=== PATIENT | female | born 1980 | race Two or more races ===

== ENCOUNTER 2017-11-29 15:32 | Inpatient (IN) | payer MEDICAID ==
[2017-11-29] MEDS: LACTATED RINGER'S 1,000 ML IV ×2 (16:50→17:54)
[2017-11-29 16:57] LABS: ADD MAN DIFF? NO
[2017-11-29 16:59] LABS: WHITE BLOOD COUNT 10.1 10^3/ul (4.8-10.8)
[2017-11-29 16:59] LABS: BASOPHIL # 0.1 10^3/ul (0.0-0.1); BASOPHILS % 0.5 % (0.0-2.0); EOSINOPHILS # 0.1 10^3/ul (0.0-0.5); EOSINOPHILS % 0.6 % (0.0-7.0); HEMATOCRIT 34.4 % (37.0-47.0); HEMOGLOBIN 12.1 g/dl (12.0-16.0); LYMPHOCYTES # 2.3 10^3/ul (0.8-2.9); LYMPHOCYTES % 22.9 % (15.0-51.0); MEAN CORPUSCULAR HEMOGLOBIN 34.4 pg (29.0-33.0); MEAN CORPUSCULAR HGB CONC 35.2 g/dl (32.0-37.0); MEAN CORPUSCULAR VOLUME 97.7 fl (82.0-101.0); MEAN PLATELET VOLUME 11.1 fl (7.4-10.4); MONOCYTE # 0.6 10^3/ul (0.3-0.9); NEUTROPHIL # 6.9 10^3/ul (1.6-7.5); NEUTROPHILS % 68.7 % (39.0-77.0); PLATELET COUNT 185 10^3/UL (140-415); RED BLOOD COUNT 3.52 10^6/ul (4.20-5.40); RED CELL DISTRIBUTION WIDTH 11.9 % (11.5-14.5)
[2017-11-29 17:06] LABS: ADD UMIC NO; UR ASCORBIC ACID NEGATIVE (NEGATIVE); UR BILIRUBIN (Dip) NEGATIVE (NEGATIVE); UR BLOOD (Dip) NEGATIVE (NEGATIVE); UR CLARITY CLEAR (CLEAR); UR COLOR YELLOW (YELLOW); UR GLUCOSE (Dip) NEGATIVE (NEGATIVE); UR KETONES (Dip) 1+ mg/dL (NEGATIVE); UR LEUKOCYTE ESTERASE (Dip) NEGATIVE Leu/ul (NEGATIVE); UR NITRITE (Dip) NEGATIVE (NEGATIVE); UR SPECIFIC GRAVITY (Dip) 1.011 (1.003-1.030); UR TOTAL PROTEIN (Dip) NEGATIVE (NEGATIVE); UR UROBILINOGEN (Dip) 2+ mg/dL (NEGATIVE)
[2017-11-29] MEDS: TERBUTALINE 1 MG/ML INJ SC (21:44)
[2017-11-29 22:23] LABS: INR 0.93; PARTIAL THROMBOPLASTIN TIME 26.9 Sec (25.0-35.0); PROTIME 12.5 Sec (11.9-14.9)
[2017-11-30] MEDS ORDERED: ACETAMINOPHEN 650 MG SUPP PR (00:30)
[2017-11-30] MEDS: LACTATED RINGER'S 1,000 ML IV ×4 (00:40→21:00)
[2017-11-30] MEDS: MAGNESIUM SULFATE 20 GM/500 ML 500 ML IV ×4 (00:55→22:06)
[2017-11-30] MEDS: BETAMET NA PHOS/AC(6 MG/ML) 5ML INJ IM (00:59)
[2017-11-30] MEDS: MAGNESIUM SULFATE 4 GM/100 ML 100 ML IV (01:09)
[2017-11-30 07:04] LABS: ALANINE AMINOTRANSFERASE 25 IU/L (13-69); ALBUMIN 3.3 g/dl (3.3-4.9); ALKALINE PHOSPHATASE 182 IU/L (42-121); ANION GAP 14 (8-16); ASPARTATE AMINO TRANSFERASE 26 IU/L (15-46); BILIRUBIN,INDIRECT 0.5 mg/dl (0-1.1); BILIRUBIN,TOTAL 0.5 mg/dl (0.2-1.3); BLOOD UREA NITROGEN 5 mg/dl (7-20); CALCIUM 8.1 mg/dl (8.4-10.2); CARBON DIOXIDE 20 mmol/L (21-31); CHLORIDE 109 mmol/L (97-110); CREATININE 0.39 mg/dl (0.44-1.00); GLUCOSE 110 mg/dl (70-220); POTASSIUM 4.4 mmol/L (3.5-5.1); SODIUM 139 mmol/L (135-144); TOTAL PROTEIN 6.6 g/dl (6.1-8.1)
[2017-11-30 07:21] LABS: MAGNESIUM 4.7 mg/dl (1.7-2.5)
[2017-11-30] MEDS: PRENATAL VITAMIN PO (09:12)
[2017-11-30] MEDS: DOCUSATE SODIUM 100 MG CAP PO (09:13)
[2017-11-30] MEDS: FERROUS SULFATE (EC) 325 MG TAB PO (09:13)
[2017-12-01] MEDS: LACTATED RINGER'S 1,000 ML IV ×3 (00:53→15:30)
[2017-12-01] MEDS: BETAMET NA PHOS/AC(6 MG/ML) 5ML INJ IM (00:57)
[2017-12-01 01:27] LABS: MAGNESIUM 4.9 mg/dl (1.7-2.5)
[2017-12-01] MEDS: ACETAMINOPHEN 325 MG TAB PO (03:31)
[2017-12-01] MEDS: CALCIUM CARBONATE 500 MG CHEW TAB PO (08:05)
[2017-12-01] MEDS: FERROUS SULFATE (EC) 325 MG TAB PO (08:05)
[2017-12-01] MEDS: DOCUSATE SODIUM 100 MG CAP PO (08:05)
[2017-12-01] MEDS: PRENATAL VITAMIN PO (08:05)
== END 2017-12-01 17:30 | disposition home or self-care (01) | DRG 778 ==
LOC: OBT 15:32 → L-D 15:33 → PP1 11-30 20:07
PROVIDERS: Obstetrics & Gynecology
DX: O60.03 Preterm labor without delivery, third trimester (principal); Z3A.36 36 weeks gestation of pregnancy
CPT/HCPCS: 36415; 76815; 76818; 80053; 81003; 83735; 85025; 85610; 85730; 96360; 96361; 96372

== ENCOUNTER 2017-12-07 08:41 | Inpatient (IN) | payer MEDICAID ==
[2017-12-07] MEDS ORDERED: CARBOPROST 250 MCG INJ IM ×2 (11:00→23:30)
[2017-12-07] MEDS ORDERED: MISOPROSTOL 200 MCG TAB PR ×2 (11:00→23:30)
[2017-12-07] MEDS ORDERED: METHYLERGONOVINE 0.2 MG INJ IM ×2 (11:00→23:30)
[2017-12-07] MEDS: LACTATED RINGER'S 1,000 ML IV ×3 (12:10→18:30)
[2017-12-07 12:26] LABS: ADD MAN DIFF? NO
[2017-12-07 12:33] LABS: WHITE BLOOD COUNT 11.7 10^3/ul (4.8-10.8)
[2017-12-07 12:33] LABS: BASOPHIL # 0.1 10^3/ul (0.0-0.1); BASOPHILS % 0.4 % (0.0-2.0); EOSINOPHILS # 0.1 10^3/ul (0.0-0.5); EOSINOPHILS % 0.5 % (0.0-7.0); HEMATOCRIT 36.6 % (37.0-47.0); HEMOGLOBIN 12.4 g/dl (12.0-16.0); LYMPHOCYTES # 2.4 10^3/ul (0.8-2.9); LYMPHOCYTES % 20.6 % (15.0-51.0); MEAN CORPUSCULAR HGB CONC 33.9 g/dl (32.0-37.0); MEAN CORPUSCULAR VOLUME 97.3 fl (82.0-101.0); MEAN PLATELET VOLUME 10.5 fl (7.4-10.4); MONOCYTE # 0.7 10^3/ul (0.3-0.9); MONOCYTES % 5.8 % (0.0-11.0); NEUTROPHIL # 8.3 10^3/ul (1.6-7.5); NEUTROPHILS % 70.8 % (39.0-77.0); PLATELET COUNT 174 10^3/UL (140-415); RED BLOOD COUNT 3.76 10^6/ul (4.20-5.40); RED CELL DISTRIBUTION WIDTH 12.4 % (11.5-14.5)
[2017-12-07 13:18] LABS: INR 0.89; PROTIME 12.1 Sec (11.9-14.9); PT RATIO 0.9
[2017-12-07 17:52] LABS: RAPID PLASMA REAGIN NONREACTIVE (NR)
[2017-12-07] MEDS: CEFAZOLIN 2 GM/50 ML (PMX) 50 ML IV (18:29)
[2017-12-07 18:31] LABS: HEPATITIS B SURFACE ANTIGEN NEGATIVE (NEGATIVE)
[2017-12-07] MEDS: OXYTOCIN 30 UNITS/LR 500 ML IV ×2 (19:07→21:05)
[2017-12-07] MEDS ORDERED: ZOLPIDEM 5 MG TAB PO ×2 (20:00→23:30)
[2017-12-07] MEDS ORDERED: HYDROmorphONE 0.5 MG/0.5 ML SYG IV ×2 (20:00)
[2017-12-07] MEDS ORDERED: NALOXONE (0.4 MG/ML) INJ IV (20:00)
[2017-12-07] MEDS ORDERED: ONDANSETRON 4 MG INJ IV ×2 (20:00→23:30)
[2017-12-07] MEDS ORDERED: DIPHENHYDRAMINE 50 MG INJ IV ×2 (20:00→23:30)
[2017-12-07] MEDS ORDERED: DEXAMETHASONE 4 MG/ML 1 ML INJ (23:07)
[2017-12-07] MEDS ORDERED: BUPIVACAINE 0.75%/DEXT (SPINAL) 2 ML INJ (23:07)
[2017-12-07] MEDS ORDERED: ONDANSETRON 4 MG INJ (23:07)
[2017-12-07] MEDS ORDERED: morphine SULFATE/PF (10 MG/10 ML) INJ (23:07)
[2017-12-07] MEDS ORDERED: FENTAnyl 50 MCG/ML VIAL (23:07)
[2017-12-07] MEDS ORDERED: PHENYLephrine (100 MCG/ML) 5ML SYG (23:07)
[2017-12-07] MEDS ORDERED: OXYCODONE/ACETAMINOPHEN (5/325) TAB PO (23:30)
[2017-12-07] MEDS ORDERED: OXYTOCIN 30 UNITS/LR 500 ML IV (23:30)
[2017-12-08] MEDS: LACTATED RINGER'S 1,000 ML IV ×3 (01:05→15:05)
[2017-12-08] MEDS ORDERED: ONDANSETRON 4 MG INJ (01:21)
[2017-12-08] MEDS ORDERED: PHENYLephrine (100 MCG/ML) 5ML SYG (01:21)
[2017-12-08 08:51] LABS: ADD MAN DIFF? NO
[2017-12-08 09:01] LABS: BASOPHILS % 0.2 % (0.0-2.0); HEMATOCRIT 34.3 % (37.0-47.0); HEMOGLOBIN 11.9 g/dl (12.0-16.0); LYMPHOCYTES # 2.3 10^3/ul (0.8-2.9); LYMPHOCYTES % 13.2 % (15.0-51.0); MEAN CORPUSCULAR HEMOGLOBIN 34.5 pg (29.0-33.0); MEAN CORPUSCULAR HGB CONC 34.7 g/dl (32.0-37.0); MEAN CORPUSCULAR VOLUME 99.4 fl (82.0-101.0); MEAN PLATELET VOLUME 11.2 fl (7.4-10.4); MONOCYTE # 0.9 10^3/ul (0.3-0.9); MONOCYTES % 4.9 % (0.0-11.0); NEUTROPHIL # 14.2 10^3/ul (1.6-7.5); PLATELET COUNT 196 10^3/UL (140-415); RED BLOOD COUNT 3.45 10^6/ul (4.20-5.40); RED CELL DISTRIBUTION WIDTH 12.1 % (11.5-14.5)
[2017-12-08 09:01] LABS: WHITE BLOOD COUNT 17.5 10^3/ul (4.8-10.8)
[2017-12-08] MEDS: KETOROLAC 30 MG INJ IV (09:32)
[2017-12-08] MEDS: OXYCODONE/ACETAMINOPHEN (5/325) TAB PO ×2 (18:16→23:05)
[2017-12-08] MEDS: IBUPROFEN 600 MG TAB PO ×2 (20:00→23:05)
[2017-12-08] MEDS: SENNA/DOCUSATE NA (8.6MG/50MG) TAB PO (21:15)
[2017-12-09] MEDS: IBUPROFEN 600 MG TAB PO ×3 (06:27→17:52)
[2017-12-09] MEDS: SENNA/DOCUSATE NA (8.6MG/50MG) TAB PO ×2 (09:04→20:58)
[2017-12-09] MEDS: OXYCODONE/ACETAMINOPHEN (5/325) TAB PO (15:21)
[2017-12-09] MEDS: LANOLIN 7 GM TUBE TOP (21:09)
[2017-12-10] MEDS: IBUPROFEN 600 MG TAB PO ×5 (00:23→21:00)
[2017-12-10] MEDS: OXYCODONE/ACETAMINOPHEN (5/325) TAB PO ×2 (03:31→14:37)
[2017-12-10] MEDS: SENNA/DOCUSATE NA (8.6MG/50MG) TAB PO ×2 (09:00→21:00)
[2017-12-10] MEDS: DIPHTH/TET/ACEL PERTUSS (ADULT) 0.5 ML VIAL IM* (11:49)
[2017-12-10] MEDS: NA PHOSPHATE/BIPHOS 133 ML ENEMA PR (15:22)
== END 2017-12-10 21:20 | disposition home or self-care (01) | DRG 766 ==
LOC: OBT 08:41 → L-D 08:41 → OBT 10:27 → L-D 10:27 → PP1 22:33
PROVIDERS: Obstetrics & Gynecology
PROC: 10D00Z1 Extraction of Products of Conception, Low, Open Approach (ICD-10-PCS; principal; 2017-12-07 14:00)
DX: O34.211 Maternal care for low transverse scar from previous cesarean delivery (principal); Z3A.37 37 weeks gestation of pregnancy; Z37.0 Single live birth
CPT/HCPCS: 85025; 85610; 85730; 86592; 86850; 86900; 86901; 87340; 90715; 99464